=== PATIENT | male | born 1970 | race Caucasian/White ===

== ENCOUNTER 2017-11-07 12:02 | Outpatient (CLI) | payer OTHER ==
--- NOTE | 2017-11-07 20:00 | MRI Report ---
Procedure Date: 11/07/2017 Accession Number: [id number] / [id number] Procedure: MRI - Knee RT W/O CPT Code: FULL RESULT: EXAM: RIGHT KNEE MRI WITHOUT CONTRAST EXAM DATE: 11/07/2017 01:15 PM. CLINICAL HISTORY: Left and right knee pain. COMPARISON: MRI left knee 11/07/2017. TECHNIQUE: Multiplanar, multisequence T1-weighted and fluid-sensitive sequences of the knee without contrast. Other: None. FINDINGS: Bones: No fractures or subluxations. No marrow edema. No bone lesions. Articular Cartilage: The patellar articular cartilage is negative for fluid signal defect. Mild chondromalacia trochlear groove. Moderate chondromalacia medial tibiofemoral compartment. Medial Meniscus: Diminutive medial meniscus. Increased signal inferior articular surface posterior horn medial meniscus. Lateral Meniscus: The lateral meniscus is intact. Cruciate Ligaments: The anterior and posterior cruciate ligaments are intact. Collateral Ligaments: The medial collateral and lateral collateral ligamentous structures are intact. Tendons: Increased signal proximal patellar tendon. Edema infrapatellar fat pad adjacent to the proximal patella. Edema is noted at the lower pole of the patella without discrete fracture. Mild prepatellar edema anterior to the proximal patellar tendon. Musculature: No edema or fatty atrophy. Other: No effusion. No popliteal cyst. No loose bodies. The medial and lateral retinacula are intact. The subcutaneous tissues and fat pads are unremarkable. IMPRESSION: 1. Tendinitis proximal patellar tendon. 2. Diminutive medial meniscus body and intermediate signal inferior articular surface posterior horn medial meniscus. Findings suggestive of prior surgery. Negative for intrameniscal fluid signal to suggest recurrent medial meniscus tear if history of prior surgery. Otherwise findings suspicious for a bucket-handle tear. 3. Moderate chondromalacia medial tibiofemoral compartment. [facility] MUSCULOSKELETAL RADIOLOGY SECTION
--- NOTE | 2017-11-07 20:01 | MRI Report ---
Procedure Date: 11/07/2017 Accession Number: [id number] / [id number] Procedure: MRI - Knee LT W/O CPT Code: FULL RESULT: EXAM: LEFT KNEE MRI WITHOUT CONTRAST EXAM DATE: 11/07/2017 01:50 PM. CLINICAL HISTORY: left and right knee pain. COMPARISON: MRI right knee 11/07/2017. TECHNIQUE: Multiplanar, multisequence T1-weighted and fluid-sensitive sequences of the knee without contrast. Other: None. FINDINGS: Bones: Marrow edema midmedial femoral condyle. Associated osteochondral defect 2.1 cm in AP dimension and 1.9 cm in transverse dimension. Chronic microtrauma versus avascular necrosis. Mild spurring medial tibial plateau. Mild spurring medial lateral left femoral condyles. Articular Cartilage: Severe chondromalacia mid medial femoral condyle. Moderate chondromalacia anterior aspect medial femoral condyle. Medial Meniscus: Diminutive posterior horn medial meniscus. Diminutive medial meniscus body. Negative for anterior horn and medial meniscus tear. Negative for intrameniscal fluid signal to suggest recurrent medial meniscus tear. Lateral Meniscus: Radial oblique tear 50% with lateral meniscus body. Cruciate Ligaments: Complete tear anterior cruciate ligament. Intact posterior cruciate ligament. Collateral Ligaments: The medial collateral ligament is negative for disruption. Chronic grade 2 tear of fibular collateral ligament. Tendons: The quadriceps, patellar, semimembranosus, and popliteus tendons are unremarkable. Musculature: No edema or fatty atrophy. Other: No effusion. Small fluid collection 1.5 x 2.1 cm in transverse dimension and 3.6 cm in height gastrocnemius semimembranosus bursa. No loose bodies. The medial and lateral retinacula are intact. The subcutaneous tissues and fat pads are unremarkable. IMPRESSION: 1. Osteochondral defect 2.1 cm in AP dimension and 1.9 cm in transverse dimension mid medial femoral condyle. 2. Diminutive body and posterior horn of medial meniscus with no intrameniscal fluid signal to suggest meniscus tear. 3. Moderate osteoarthritis medial tibiofemoral compartment. Kellgren-Yosi grade 3. 4. Complete tear anterior cruciate ligament. 5. Radial oblique tear lateral meniscus body. 6. Chronic grade 2 tear fibular collateral ligament. [facility] MUSCULOSKELETAL RADIOLOGY SECTION
== END 2017-11-07 12:03 | disposition home or self-care (01) ==
LOC: DI 12:02
PROVIDERS: ATTEND Nurse Practitioner Acute Care
DX: M17.12 Unilateral primary osteoarthritis, left knee (principal); S83.512A Sprain of anterior cruciate ligament of left knee, initial encounter; S83.422A Sprain of lateral collateral ligament of left knee, initial encounter; S83.282A Other tear of lateral meniscus, current injury, left knee, initial encounter; M76.51 Patellar tendinitis, right knee; M94.261 Chondromalacia, right knee

== ENCOUNTER 2017-12-02 18:22 | Emergency (ER) | payer OTHER ==
[2017-12-02 18:52] VITALS: BP 134/80
--- NOTE | 2017-12-02 19:24 | ED Physician Documentation ---
History of Present Illness - Stated complaint Stated Complaint: LA PX/POST FLU SHOT - Chief complaint Chief Complaint: General - History obtained from History obtained from: Patient - History of Present Illness Timing: Other (About 3 weeks ago had a flu shot in the left deltoid. He was doing fine for a few days but then developed posterior left shoulder pain that is much worse with motion that has been progressive over the last 3 weeks. No fevers or chills. It hurts a lot to move the shoulder especially abducted. Even driving in the car and using the steering wheel hurts a lot. He has no history of problems with that shoulder. If he were for the shoulder he would feel fine without fevers, chills, nausea or fatigue.) Review of Systems Constitutional: denies: Fever, Chills Cardiac: denies: Chest pain / pressure, Palpitations Respiratory: denies: Dyspnea, Cough PD PAST MEDICAL HISTORY - Past Medical History Past Medical History: No - Past Surgical History Past Surgical History: Yes Ortho: Other - Present Medications Home Medications: Ambulatory Orders Medication Instructions Recorded Confirmed Azelastine HCl [Astelin] 137 mcg NS 06/28/13 08/17/13 Cetirizine [ZyrTEC] 10 mg PO ONCE 06/28/13 08/17/13 Ranitidine HCl [Zantac 75] 75 mg PO 06/28/13 08/17/13 - Allergies Allergies/Adverse Reactions: Allergies Allergy/AdvReac Type Severity Reaction Status Date / Time amoxicillin trihydrate * Allergy Severe Respiratory Verified 12/02/17 18:52 [From Augmentin] potassium clavulanate * Allergy Severe Respiratory Verified 12/02/17 18:52 [From Augmentin] Sulfa (Sulfonamide Allergy Severe Respiratory Verified 12/02/17 18:52 Antibiotics) - Social History Does the pt smoke?: Yes Smoking Status: Current every day smoker Does the pt drink ETOH?: No Does the pt have substance abuse?: No - Immunizations Immunizations are current?: Yes - POLST Patient has POLST: No PD ED PE NORMAL - Vitals Vital signs reviewed: Yes - General General: Alert and oriented X 3, No acute distress - Extremities Extremities: Other (Left shoulder is tender posteriorly and he has significantly decreased range of motion. Can only abduct actively to about 30 but passively I can take him up to about 90. He has positive supraspinatus testing. There is no warmth or redness. And internal and external rotation is relatively lila nless. Bedside ultrasound demonstrates no abscess in the deltoid.) - Neuro Neuro: Alert and oriented X 3, Normal speech Results - Vitals Vitals: Vital Signs - 24 hr 12/02/17 18:46 Temperature 36.9 C Heart Rate 91 Respiratory 16 Rate Blood Pressure 134/80 H O2 Saturation 96 Oxygen O2 Source Room air - Rads (name of study) L shoulder XR Radiology: EMP read contemporaneously (normal) PD MEDICAL DECISION MAKING - ED course ED course: There is really no sign of infection, so I think the flu shot itself was probably an incidental events because his examination is more consistent with a rotator cuff issue. He declined prescription pain medication. - Sepsis Event Vital Signs: Vital Signs - 24 hr 12/02/17 18:46 Temperature 36.9 C Heart Rate 91 Respiratory 16 Rate Blood Pressure 134/80 H O2 Saturation 96 Oxygen O2 Source Room air Departure - Departure Disposition: 01 Home, Self Care Clinical Impression: Left rotator cuff tear arthropathy Condition: Good Record reviewed to determine appropriate education?: Yes Instructions: ED Torn Rotator Cuff Comments: As discussed, it seems that this is unrelated to the flu shot to me as there are no signs of infection and the examination is more consistent with a rotator cuff issue. Do gentle range of motion exercises as discussed and follow-up with your doctor for consideration of MRI. If you develop increased pain, redness, or fevers please return for reevaluation.
--- NOTE | 2017-12-02 19:44 | XRAY Report ---
Reason: shoulder pain Procedure Date: 12/02/2017 Accession Number: [id number] / [id number] Procedure: XR - Shoulder 3 View LT CPT Code: FULL RESULT: EXAM: LEFT SHOULDER RADIOGRAPHY EXAM DATE: 12/02/2017 07:35 PM. CLINICAL HISTORY: Shoulder pain. COMPARISON: None. TECHNIQUE: 3 views. FINDINGS: Bones: Normal. No fracture or bone lesion. Joints: The glenohumeral and acromioclavicular joints are normal. Soft tissues: The visualized hemithorax is unremarkable. No soft tissue swelling. IMPRESSION: Normal shoulder radiography. [facility]
== END 2017-12-02 20:05 | disposition home or self-care (01) ==
LOC: ED 18:22
DX: M12.812 Other specific arthropathies, not elsewhere classified, left shoulder (principal); F17.200 Nicotine dependence, unspecified, uncomplicated
CPT/HCPCS: 99282; 99283

== ENCOUNTER 2018-12-08 10:21 | Outpatient (CLI) | payer OTHER ==
--- NOTE | 2018-12-08 10:58 | SLEEP CARE CONSULTATION ---
Information from patient questionnaire entered by Ilda Faulkner. I have reviewed and concur with the information entered by Ilda Faulkner. This document represents the service I personally performed and the decisions made by me, Isiah Trevizo MD, [facility]. History of Present Illness Reason for Visit: New patient Chief Complaint: reports: Unrefreshed sleep, Snoring, Fatigue Duration of Symptoms: 10+ years Usual bedtime: 2230 Time it takes to fall asleep: 5-10 minutes Snores at night: Yes (Excessively) Observed to quit breathing while asleep: No Sleeps alone due to snoring: Yes Number of times waking at night: 2-3 Reasons for waking at night: reports: Snoring, Gasping for air, Pain Toss, Turn, or Twitch while sleeping: Yes Recalls having dreams: Yes Usually gets out of bed at: [id number] Feels refreshed in the morning: No Morning headache: Yes Sleepy or fatigued during the day: Yes Ever fallen asleep while driving: Yes Takes day naps: Yes Dreams during day naps: Yes Prior sleep studies: Yes Year and Where: [id number] [facility] Additional HPI information: I had the pleasure of seeing Mr. Garcia today regarding the possibility of him having a sleep disorder. As you know, he is a 48 year old gentleman who complains of loud snore, frequent awakenings, nocturnal choking, and excessive daytime sleepiness. He had a sleep study at the [facility] almost 10 y ears ago but was told that he did not have significant sleep disordered breathing. He continues to snore and his had to sleep separately. Since the sleep study, he has gained 50 lbs. He usually has a morning headache lasting 20 30 minutes. During the day he complains of feeling sleepy and fatigued. His score on [place] Sleepiness Scale is 13 out of 24. He has never fallen asleep while driving nor has had any accident due to sleepiness. He usually takes naps during the day. Upon falling asleep during the day he reports having dreams. He has never had sleep paralysis, experienced cataplexy or symptoms of restless leg syndrome. He reports having impaired concentration during the day. His father has obstructive sleep apnea-hypopnea and uses a CPAP. 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 Patient is and lives in [place]. Have you smoked in the past 12 months: Yes Cigarettes per day (20/pack): 2 (1/8) Years of smokin Quit date: 1989 Smoking Pack Years: 0.2 Alcohol amount and frequency: 1 glass Caffeine use: Yes Caffeine amount and frequency: 1 16oz 5x/week Family History Family history of sleep disordered breathing: Yes Family Hx Sleep Apnea: Father: Sleep apnea - Treated Allergies and Home Medications Drug allergies reviewed: Yes Home medication list reviewed: Yes Review of Systems Weight gain over past 5 years: 50 Cardiovascular: denies: high blood pressure, palpitations, chest pain, irregular heart rate or pulse, leg or foot swelling, have to sleep sitting up, other Respiratory: reports: sputum production, chronic cough Gastrointestinal: reports: difficulty swallowing Neurological: reports: headaches Psychiatric: reports: anxiety, depression, mood disorder Ear/Nose/Throat: reports: nasal congestion Endocrine: reports: sluggishness, excessive thirst Musculoskeletal: reports: joint pain, back pain, muscle pain or cramping Immunologic: reports: sneezing, allergies to food or environment Physical Exam Vital signs obtained and entered by: Dr. Trevizo Blood Pressure: 100/50 Heart Rate: 81 O2 Saturation: 96 Height: 6 ft 3 in Weight (kg): 240 lb Body Mass Index: 29.9 BMI Classification: Overweight Mood/affect: normal HEENT: No craniofacial malformation Nostrils: patent to airflow Turbinates: normal Septum: midline Mouth and throat: narrow oropharynx Soft palate: long Hard palate: normal Uvula: normal Uvula visualization: 25% Mallampati Class III Tongue: normal in size Tonsils: absent bilaterally Chin and jaw: normal size and position Neck: normal w/o lymphadenopathy or thyromegaly Heart: regular rate and rhythm Lungs: clear bilaterally Abdomen: soft Extremities: no edema or clubbing Neurologic: intact Impression and Plan IMPRESSION: 1. Obstructive Sleep Apnea-Hypopnea Syndrome, as suggested by history of loud and irregular snoring, observed cessation of breath while asleep, frequent awakenings during the night, nocturnal choking, unrefreshed sleep, morning headache, cognitive impairment, and daytime hypersomnolence. Narrow oropharynx and obesity are common predisposing factors for obstructive sleep apnea-hypopnea syndrome. Pathophysiology of sleep-disordered breathing was discussed. I recommend proceeding to polysomnography to confirm the diagnosis and to assess severity. If he has significant sleep disordered breathing, a manual CPAP titration study will also be performed to find the optimal treatment pressure. I informed the patient of what the sleep studies involve and after some discussion, he agreed to proceed. Plan: 1. Schedule polysomnography + manual CPAP titration study and return in 1 to 2 weeks after the study to discuss result and initiate therapy. 2. Avoid long distance driving or when feeling sleepy. 3. Avoid alcohol, sedative and muscle relaxant around bedtime. 4. Attempt to lose weight. I spent 100% of the 15 minute visit [id number] with the patient with greater than 50% of this was spent time counseling the patient and coordination of care.
[2018-12-08 10:59] VITALS: BP 100/50
== END 2018-12-08 10:22 | disposition home or self-care (01) ==
LOC: SC 10:21
PROVIDERS: ATTEND Internal Medicine Pulmonary Disease
DX: G47.10 Hypersomnia, unspecified (principal); R06.83 Snoring; R06.81 Apnea, not elsewhere classified; G47.8 Other sleep disorders; R51 Headache; R41.89 Other symptoms and signs involving cognitive functions and awareness
CPT/HCPCS: 99203; 99212

== ENCOUNTER 2019-01-12 20:29 | Outpatient (CLI) | payer OTHER | END 2019-01-12 20:30 | disposition home or self-care (01) | LOC: SC 20:29 | PROVIDERS: ATTEND Internal Medicine Pulmonary Disease | DX: G47.33 Obstructive sleep apnea (adult) (pediatric) (principal) | CPT/HCPCS: 95810 ==

== ENCOUNTER 2019-04-01 20:31 | Outpatient (CLI) | payer OTHER | END 2019-04-01 20:32 | disposition home or self-care (01) | LOC: SC 20:31 | PROVIDERS: ATTEND Internal Medicine Pulmonary Disease | DX: G47.33 Obstructive sleep apnea (adult) (pediatric) (principal); E66.3 Overweight; Z68.30 Body mass index [BMI] 30.0-30.9, adult | CPT/HCPCS: 95811 ==

== ENCOUNTER 2019-04-14 11:00 | Outpatient (CLI) | payer OTHER ==
--- NOTE | 2019-04-14 12:14 | SLEEP CARE CONSULTATION ---
Information from patient questionnaire entered by Ilda Faulkner. I have reviewed and concur with the information entered by Ilda Faulkner. This document represents the service I personally performed and the decisions made by me, Suha Arriola RN, MSN, DIRECTOR OF [employer]CHIVES. History of Present Illness Initial [place] Sleepiness Scale score: 13 Current [place] Sleepiness Scale score: 13 Additional HPI information: BORIS BAUMANN returns for follow up and results of the recently performed manual titration study. He was to start on a autoCPAP afterr seen for polysomnography but [facility] from patient and this office faxing information. I explained the pathophysiology behind obstructive sleep apnea. After some discussion, the patient opted to go continue with plan to use nasal CPAP therapy. Nasal autoCPAP set at 9 cmH20 will be ordered with rationale explained. I explained how CPAP machine works with sample devices RespirExoYous Dreamstation and ResFetch It [id number] and what to expect when using the machine. Using CPAP e very night in order to get used to it was emphasized. Patient advised to put CPAP mask on before getting into bed so as not to fall asleep without CPAP. To assist acclimation to CPAP use, it could also be used for a short time during day while reading or watching TV. The patient was instructed to call the CPAP supplier to discuss any mechanical problem that may occur. If the mask given is uncomfortable or is difficult to keep on through the night even with adjustment, contact the CPAP supplier as many will replace with another mask style if notified before 30 days. If snoring or perceives is not getting enough air or too much air from the machine, notify this office. AAS patient education PAP tips reviewed and given to patient. Patient counseled not drink alcohol less than 4 hours before bedtime as it can increase snoring and apnea. Patient does not drink alcohol. Patient was cautioned about risks of drowsy driving until sleepiness symptoms resolve. Patient denies drowsy driving. AAS patient education on snoring and sleep apnea given and reviewed. Sleep Study - Results Polysomnography/Home Sleep Study results: The quality of the study is good. CPAP was initiated at 4 cmH2O and titrated up to CPAP at 10 cmH2O. CPAP at 9 cmH2O appeared to be optimal (AHI of 3.6 per hour on the pressure). There was supine REM sleep on the pressure. Oxygen saturation was minimally low. Lower CPAP settings allowed frequent residual respiratory events. The patient appeared to have tolerated positive airway pressure therapy very well. The patients sleep efficiency was normal. The sleep architecture was also normal.. There was no significant periodic limb movement of sleep. Cardiac rhythm was normal sinus rhythm without significant arrhythmia. No abnormal behavior (parasomnia) observed during the night. Allergies and Home Medications Known drug allergies: Yes Home medication list reviewed: Yes (see list of changes ) Allergy and home medication list: Zyrtec 10mg daily Azelastine nasal spray Added Flonase 2 puffs each nostril daily monolucostat 1 daily grass tech - disolved in mouth daily Review of Systems Review of systems same as previous: Yes Physical Exam Blood Pressure: 120/70 Cuff size: long Heart Rate: 78 O2 Saturation: 98 Height: 6 ft 3 in Weight: 239 lb Body Mass Index: 29.8 BMI Classification: Overweight Impression and Plan 1. Obstructive Sleep Apnea-Hypopnea Syndrome, moderate, with lowest oxygen saturation of 85%. Obviously this is the cause of the patients symptoms of unrefreshed sleep, and excessive daytime sleepiness. Positive pressure therapy could benefit his allergic rhinitis by using filtered humidified air at night. Since patient has not yet received his CPAP - I will send another order with optimal pressure to [facility]. As mentioned above, the patient will be started on nasal CPAP therapy with pressure set at 9 cmH2O. Compliance guidelines also reviewed. A copy of compliance guidelines will be given for reference at check out. Because the apnea is more severe supine, I instructed to avoid sleeping supine using pillow positioning until able to start CPAP use. * Nasal auto CPAP therapy, pressure at 9 cm H2O. * Attempt to lose weight. * Avoid alcohol consumption near bedtime. * Avoid supine sleep until using CPAP. * The patient is again cautioned about driving until sleepiness completely resolves. * Return one month after CPAP obtained. I will assess response to therapy and compliance at that time. I spent 100% of this visit face to face with the patient with greater than 50% of this was spent time counseling the patient and coordination of care.
[2019-04-14 12:15] VITALS: BP 120/70
== END 2019-04-14 11:01 | disposition home or self-care (01) ==
LOC: SC 11:00
PROVIDERS: ATTEND Nurse Practitioner Family
DX: G47.33 Obstructive sleep apnea (adult) (pediatric) (principal); E66.3 Overweight; Z68.29 Body mass index [BMI] 29.0-29.9, adult
CPT/HCPCS: 99212; 99214